=== PATIENT | male | born 1950 | race Caucasian/White ===

== ENCOUNTER 2017-01-01 18:42 | Emergency (ER) | payer MEDICARE, OTHER ==
[~2017-01-01] VITALS: Ht 175.3 cm; Wt 103.0 kg
[~2017-01-01 18:42] MED LIST: BP MED; CHOL. MED; [UNRECOGNIZED DRUG - OTHER]
[2017-01-01 18:47] VITALS: BP 158/79; PULSE 65; RESP 16; TEMP 98.5; O2SAT 97
--- NOTE | 2017-01-01 19:41 | PD ---
HPI Chief Complaint: GI Complaint Time Seen by Provider: 19:15 Travel History International Travel<30 days: No Contact w/Intl Traveler<30days: No Traveled to known affect area: No History of Present Illness HPI This 66-year-old male with multiple complaints. He says that he has had periods of constipation. He's had occasional nausea. At times he feels like he might pass out. He has had a right carotid endarterectomy done in October 28. He has a history of chronic sinus problems and prostate cancer in the past. He did have radiation external beam radiation to the prostate several years ago, he recently had a stress test. He had some mild left-sided chest pain that lasted about a minute earlier today. He has had a vascular bypass surgery in the abdomen. He was exposed to agent orange in [facility] Past Medical History Hx Anticoagulant Therapy: Yes (BABY ASA DAILY) Cardiovascular Problems: Yes (HTN, CHOL) High Cholesterol: Yes Diabetes: Yes Patient Takes Glucophage: Yes Diminished Hearing: No GERD: Yes Hypertension: Yes Kidney Stones: Yes Immunizations Current: Yes ?: Not Past Surgical History Cardiac Surgery: Yes (carotid artery surg 12/02) Other Surgery: Yes (BACK SURGERY IN 1994 AND BYPASS SURGERY "BOTH LEGS" IN 1996 ) Social History Alcohol Use: No Tobacco Use: No Substance Use: No Allergies-Medications (Allergen,Severity, Reaction): Coded Allergies: Herbicides (Verified Allergy, Intermediate, 01/01/17) Irbesartan (Verified Allergy, Intermediate, 01/01/17) Lisinopril (Verified Allergy, Intermediate, 01/01/17) Ampicillin (Verified Allergy, Unknown, 01/01/17) Reported Meds & Prescriptions Reported Meds & Active Scripts Active Reported Potassium Chloride ER (Potassium Chloride) 20 Meq Tab 20 Meq PO BID Omeprazole 20 Mg Cap Hydrochlorothiazide 25 Mg Tab 25 Mg PO DAILY Spironolactone 25 Mg Tab 12.5 Mg PO DAILY Hydralazine (Hydralazine HCl) 10 Mg Tab 10 Mg PO TID Take with a meal Glipizide 5 Mg Tab 5 Mg PO BIDAC Take 30 minutes before a meal Carvedilol 25 Mg Tab 25 Mg PO BID Atorvastatin (Atorvastatin Calcium) 40 Mg Tab 40 Mg PO HS Aspir-81 (Aspirin) 81 Mg Tabdr Amlodipine (Amlodipine Besylate) 10 Mg Tab 10 Mg PO DAILY Allopurinol 300 Mg Tab 300 Mg PO DAILY Alfuzosin ER 24 HR 10 Mg Tab 10 Mg PO DAILY Review of Systems General / Constitutional: No: Fever, Chills Eyes: No: Diploplia, Blurred Vision HENT: Positive: Lightheadedness, No: Headaches, Vertigo Cardiovascular: Positive: Chest Pain or Discomfort, No: Palpitations Respiratory: No: Cough, Shortness of Breath Gastrointestinal: Positive: Nausea, Constipation, No: Diarrhea Genitourinary: No: Nocturia Skin: No Rash, No Itching Neurologic: No: Weakness Psychiatric: No: Anxiety Physical Exam Narrative GENERAL: Well-developed male SKIN: Focused skin assessment warm/dry. HEAD: Atraumatic. Normocephalic. EYES: Pupils equal and round. No scleral icterus. No injection or drainage. ENT: No nasal bleeding or discharge. Mucous membranes pink and moist. NECK: Trachea midline. No JVD. CARDIOVASCULAR: Regular rate and rhythm. No murmur appreciated. RESPIRATORY: No accessory muscle use. Clear to auscultation. Breath sounds equal bilaterally. GASTROINTESTINAL: Abdomen soft, non-tender, nondistended. Hepatic and splenic margins not palpable. MUSCULOSKELETAL: No obvious deformities. No clubbing. No cyanosis. No edema. NEUROLOGICAL: Awake and alert. No obvious cranial nerve deficits. Motor grossly within normal limits. Normal speech. PSYCHIATRIC: Appropriate mood and affect; insight and judgment normal. Data Data Last Documented VS Vital Signs Date Time Temp Pulse Resp B/P Pulse Ox O2 Delivery O2 Flow Rate FiO2 01/01/17 18:47 98.5 65 16 158/79 97 Orders Electrocardiogram (01/01/17 19:29) Complete Blood Count With Diff (01/01/17 19:29) Comprehensive Metabolic Panel (01/01/17 19:29) Urinalysis - C+S If Indicated (01/01/17 19:29) Labs Laboratory Tests Test 01/01/17 20:00 White Blood Count 9.1 TH/MM3 Red Blood Count 5.11 MIL/MM3 Hemoglobin 15.8 GM/DL Hematocrit 47.7 % Mean Corpuscular Volume 93.3 FL Mean Corpuscular Hemoglobin 30.8 PG Mean Corpuscular Hemoglobin 33.0 % Concent Red Cell Distribution Width 13.7 % Platelet Count 167 TH/MM3 Mean Platelet Volume 9.5 FL Neutrophils (%) (Auto) 61.3 % Lymphocytes (%) (Auto) 22.7 % Monocytes (%) (Auto) 9.2 % Eosinophils (%) (Auto) 5.9 % Basophils (%) (Auto) 0.9 % Neutrophils # (Auto) 5.6 TH/MM3 Lymphocytes # (Auto) 2.1 TH/MM3 Monocytes # (Auto) 0.8 TH/MM3 Eosinophils # (Auto) 0.5 TH/MM3 Basophils # (Auto) 0.1 TH/MM3 CBC Comment DIFF FINAL Differential Comment Urine Color YELLOW Urine Turbidity CLEAR Urine pH 6.0 Urine Specific [place] 1.013 Urine Protein NEG mg/dL Urine Glucose (UA) NEG mg/dL Urine Ketones NEG mg/dL Urine Occult Blood NEG Urine Nitrite NEG Urine Bilirubin NEG Urine Leukocyte Esterase NEG Urine WBC 0-2 /hpf Urine Squamous Epithelial 0-5 /hpf Cells Urine Mucus RARE /lpf Microscopic Urinalysis Comment CULT NOT INDICATED Sodium Level 143 MEQ/L Potassium Level 3.9 MEQ/L Chloride Level 107 MEQ/L Carbon Dioxide Level 26.2 MEQ/L Anion Gap 10 MEQ/L Blood Urea Nitrogen 16 MG/DL Creatinine 1.00 MG/DL Estimat Glomerular Filtration 75 ML/MIN Rate Random Glucose 63 MG/DL Calcium Level 8.6 MG/DL Total Bilirubin 0.4 MG/DL Aspartate Amino Transf 20 U/L (AST/SGOT) Alanine Aminotransferase 30 U/L (ALT/SGPT) Alkaline Phosphatase 90 U/L Total Protein 7.3 GM/DL Albumin 3.7 GM/DL [facility] Medical Decision Making Medical Screen Exam Complete: Yes Emergency Medical Condition: Yes Medical Record Reviewed: Yes Differential Diagnosis Differential includes constipation, adverse medication reaction Narrative Course Lab work is unremarkable. I recommended the patient that he use milk of magnesia as needed for constipation. He is stable for discharge he is to follow -up at the [facility] Diagnosis Primary Impression: Constipation Qualified Code: K59.00 - Constipation, unspecified constipation type Additional Instructions: Take milk of magnesia as needed Disposition: 01 DISCHARGE HOME Condition: Stable Carlos Mcmahon MD Jan 01, 2017 19:40
[2017-01-01] MEDS ORDERED: POTA-163 PO (19:43)
[2017-01-01] MEDS ORDERED: ASPI81TA81 (19:43)
[2017-01-01] MEDS ORDERED: GLIP5TAB8 PO (19:43)
[2017-01-01] MEDS ORDERED: HYDR25TA5 PO (19:43)
[2017-01-01] MEDS ORDERED: SPIR25TA PO (19:43)
[2017-01-01] MEDS ORDERED: ALLO300T2 PO (19:43)
[2017-01-01] MEDS ORDERED: OMEP20CA2 (19:43)
[2017-01-01] MEDS ORDERED: ALFU10TA2 PO (19:43)
[2017-01-01] MEDS ORDERED: HYDR10TA23 PO (19:43)
[2017-01-01] MEDS ORDERED: AMLO10TA2 PO (19:43)
[2017-01-01] MEDS ORDERED: ATOR40TA16 PO (19:43)
[2017-01-01] MEDS ORDERED: CARV25TA PO (19:43)
[2017-01-01 20:10] LABS: AUTOMATED NEUTROPHIL # 5.6 TH/MM3 (1.8-7.7); BASOPHIL # 0.1 TH/MM3 (0-0.2); BASOPHIL % 0.9 % (0.0-2.0); BLOOD, URINE NEG (NEG); EOSINOPHIL # 0.5 TH/MM3 (0-0.4); EOSINOPHIL % 5.9 % (0.0-4.0); GLUCOSE,URINE NEG (NEG); HEMATOCRIT 47.7 % (39.0-51.0); KETONE, URINE NEG (NEG); LYMPH % 22.7 % (9.0-44.0); LYMPHOCYTE # 2.1 TH/MM3 (1.0-4.8); MEAN CELL VOLUME 93.3 FL (80.0-100.0); MEAN CORPUSCULAR HEMOGLOBIN 30.8 PG (27.0-34.0); MONO % 9.2 % (0.0-8.0); NEUT % 61.3 % (16.0-70.0); NITRITE,URINE NEG (NEG); PLATELET COUNT 167 TH/MM3 (150-450); RED BLOOD COUNT 5.11 MIL/MM3 (4.50-5.90); RED CELL DISTRIBUTION WIDTH 13.7 % (11.6-17.2); WHITE BLOOD COUNT 9.1 TH/MM3 (4.0-11.0)
[2017-01-01 20:12] LABS: HEMO FLAGS DIFF FINAL
[2017-01-01 20:24] LABS: CHLORIDE 107 MEQ/L (98-107); POTASSIUM 3.9 MEQ/L (3.5-5.1); SODIUM (NA) 143 MEQ/L (136-145)
[2017-01-01 20:27] LABS: ANION GAP 10 MEQ/L (5-15); BICARBONATE 26.2 MEQ/L (21.0-32.0); BLOOD UREA NITROGEN 16 MG/DL (7-18)
[2017-01-01 20:28] LABS: URINE COLOR YELLOW (YELLW/STRAW)
[2017-01-01 20:30] LABS: ALT (GPT) 30 U/L (12-78); AST (GOT) 20 U/L (15-37); GLOMERULAR FILTRATION RATE 75 ML/MIN (>89); MUCUS URINE RARE /lpf (OCC)
[2017-01-01 20:31] LABS: COMMENT (UR) CULT NOT INDICATED; CULTURE IF INDICATED CULT NOT INDICATED; SQUAMOUS EPITHELIAL CELL URINE 0-5 /hpf (0-5); WBC, URINE 0-2 /hpf (0-5)
[2017-01-01 20:32] LABS: TOTAL BILIRUBIN ADULT 0.4 MG/DL (0.2-1.0)
[2017-01-01 20:33] LABS: ALKALINE PHOSPHATASE 90 U/L (45-117)
[2017-01-01 21:23] VITALS: BP 147/72
--- NOTE | 2017-01-02 11:42 | EKG ---
Date Performed: 01/01/2017 Time Performed: 19:46:28 PTAGE: 66 years EKG: Sinus bradycardia with borderline 1st degree A-V block. Borderline ECG PREVIOUS TRACING : 08/20/2009 14.16 Compared to prior tracing no significant change DOCTOR: Dio Barragan Interpretating Date/Time 01/02/2017 11:41:54
== END 2017-01-01 21:26 | disposition home or self-care (01) ==
LOC: PHED 18:42
DX: K59.00 Constipation, unspecified (principal); I10 Essential (primary) hypertension; E78.00 Pure hypercholesterolemia, unspecified; E11.9 Type 2 diabetes mellitus without complications; K21.9 Gastro-esophageal reflux disease without esophagitis; Z87.442 Personal history of urinary calculi; Z85.46 Personal history of malignant neoplasm of prostate
CPT/HCPCS: 80053; 81001; 85025; 93005

== ENCOUNTER 2017-01-08 22:22 | Emergency (ER) | payer OTHER, MEDICARE ==
[~2017-01-08] VITALS: Ht 175.3 cm; Wt 102.7 kg
[~2017-01-08 22:22] MED LIST changes: +ALFU10TA2 PO; +ALLO300T2 PO; +AMLO10TA2 PO; +ASPI81TA81; +ATOR40TA16 PO; -BP MED; +CARV25TA PO; -CHOL. MED; +GLIP5TAB8 PO; +HYDR10TA23 PO; +HYDR25TA5 PO; +OMEP20CA2; +POTA-163 PO; +SPIR25TA PO; -[UNRECOGNIZED DRUG - OTHER]
[2017-01-08 22:35] VITALS: BP 174/75; PULSE 60; RESP 17; TEMP 98.7; O2SAT 95
--- NOTE | 2017-01-08 22:56 | RADHPO ---
EXAM DATE/TIME: 01/08/2017 22:49 [place] COMPARISON: No previous studies available for comparison. INDICATIONS : Chest pain. MEDICAL HISTORY : None. SURGICAL HISTORY : None. ENCOUNTER: Initial ACUITY: 1 day PAIN SCORE: 7/10 LOCATION: Bilateral chest FINDINGS: A single view of the chest demonstrates the lungs to be symmetrically aerated without evidence of mas s, infiltrate or effusion. The cardiomediastinal contours are unremarkable. Osseous structures are intact. CONCLUSION: The lungs are clear. Oc Gray MD on January 08, 2017 at 22:54 Board Certified Radiologist. This report was verified electronically.
[2017-01-08 23:20] VITALS: BP 175/69; PULSE 85; RESP 16; O2SAT 99
[2017-01-08 23:43] LABS: BASOPHIL # 0.3 TH/MM3 (0-0.2); EOSINOPHIL # 0.5 TH/MM3 (0-0.4); HEMATOCRIT 44.1 % (39.0-51.0); HEMO FLAGS DIFF FINAL; LYMPH % 23.7 % (9.0-44.0); MEAN CORPUSCULAR HEMOGLOBIN 31.7 PG (27.0-34.0); MEAN CORPUSCULAR HGB CONC 34.5 % (32.0-36.0); MONO % 9.5 % (0.0-8.0); NEUT % 57.8 % (16.0-70.0); PLATELET COUNT 121 TH/MM3 (150-450); RED CELL DISTRIBUTION WIDTH 13.6 % (11.6-17.2); WHITE BLOOD COUNT 8.6 TH/MM3 (4.0-11.0)
[2017-01-08 23:56] LABS: CHLORIDE 108 MEQ/L (98-107); POTASSIUM 3.7 MEQ/L (3.5-5.1); SODIUM (NA) 142 MEQ/L (136-145)
[2017-01-09] LABS: ANION GAP 9 MEQ/L (5-15); BICARBONATE 25.4 MEQ/L (21.0-32.0); BLOOD UREA NITROGEN 17 MG/DL (7-18)
--- NOTE | 2017-01-09 00:01 | PD ---
HPI Chief Complaint: Chest Pain Time Seen by Provider: 23:55 Travel History International Travel<30 days: No Contact w/Intl Traveler<30days: No Traveled to known affect area: No History of Present Illness HPI The patient is a 67-year-old male with no known history of heart disease but who does have vascular disease, who complains of a grabbing type chest pain lasting at its longest 2 minutes in the left axilla and left scapular area and left anterior chest. It started 8 days ago. He has had a normal stress test and echocardiogram in September of this year. He does have hypertension, non- insulin-dependent diabetes mellitus, elevated cholesterol and has peripheral vascular disease. He has had a carotid artery endarterectomy and a bilateral aortofemoral bypass graft. He does not smoke. He denies any nausea, shortness of breath or diaphoresis. He denies any radiation of pain. PFSH Past Medical History Hx Anticoagulant Therapy: Yes (BABY ASA DAILY) Cardiovascular Problems: Yes High Cholesterol: Yes Diabetes: Yes Patient Takes Glucophage: Yes Diminished Hearing: No GERD: Yes Hypertension: Yes Kidney Stones: Yes Immunizations Current: Yes Past Surgical History Cardiac Surgery: Yes (carotid artery surg 12/02) Other Surgery: Yes (BACK SURGERY IN 1994 AND BYPASS SURGERY "BOTH LEGS" IN 1996 ) Social History Alcohol Use: No Tobacco Use: No Substance Use: No Allergies-Medications (Allergen,Severity, Reaction): Coded Allergies: Herbicides (Verified Allergy, Intermediate, 01/08/17) Irbesartan (Verified Allergy, Intermediate, 01/08/17) Lisinopril (Verified Allergy, Intermediate, 01/08/17) Ampicillin (Verified Allergy, Unknown, 01/08/17) Reported Meds & Prescriptions Reported Meds & Active Scripts Active Reported Potassium Chloride ER (Potassium Chloride) 20 Meq Tab 20 Meq PO BID Omeprazole 20 Mg Cap Hydrochlorothiazide 25 Mg Tab 25 Mg PO DAILY Spironolactone 25 Mg Tab 12.5 Mg PO DAILY Hydralazine (Hydralazine HCl) 10 Mg Tab 10 Mg PO TID Take with a meal Glipizide 5 Mg Tab 5 Mg PO BIDAC Take 30 minutes before a meal Carvedilol 25 Mg Tab 25 Mg PO BID Atorvastatin (Atorvastatin Calcium) 40 Mg Tab 40 Mg PO HS Aspir-81 (Aspirin) 81 Mg Tabdr Amlodipine (Amlodipine Besylate) 10 Mg Tab 10 Mg PO DAILY Allopurinol 300 Mg Tab 300 Mg PO DAILY Alfuzosin ER 24 HR 10 Mg Tab 10 Mg PO DAILY Review of Systems Except as stated in HPI: all other systems reviewed are Neg Physical Exam Narrative GENERAL: The patient is alert, anxious, oriented 3 in no apparent distress. His vital signs show heart rate of 60 and blood pressure 174/75 but are otherwise normal. SKIN: Focused skin assessment warm/dry. HEAD: Atraumatic. Normocephalic. EYES: Pupils equal and round. No scleral icterus. No injection or drainage. ENT: No nasal bleeding or discharge. Mucous membranes pink and moist. NECK: Trachea midline. No JVD. CARDIOVASCULAR: Regular rate and rhythm. No murmur appreciated. RESPIRATORY: No accessory muscle use. Clear to auscultation. Breath sounds equal bilaterally. GASTROINTESTINAL: Abdomen soft, non-tender, nondistended. Hepatic and splenic margins not palpable. MUSCULOSKELETAL: No obvious deformities. No clubbing. No cyanosis. No edema. NEUROLOGICAL: Awake and alert. No obvious cranial nerve deficits. Motor grossly within normal limits. Normal speech. PSYCHIATRIC: Appropriate mood and affect; insight and judgment normal. Data Data Last Documented VS Vital Signs Date Time Temp Pulse Resp B/P Pulse Ox O2 Delivery O2 Flow Rate FiO2 01/08/17 23:20 88 99 Room Air 01/08/17 23:20 16 175/69 01/08/17 22:35 98.7 Orders Electrocardiogram (01/08/17 22:37) Complete Blood Count With Diff (01/08/17 22:37) Basic Metabolic Panel (Bmp) (01/08/17 22:37) Ckmb (Isoenzyme) Profile (01/08/17 22:37) Troponin I (01/08/17 22:37) Chest, Single Ap (01/08/17 22:37) Iv Access Insert/Monitor (01/08/17 22:37) Ecg Monitoring (01/08/17 22:37) Oxygen Administration (01/08/17 22:37) Oximetry (01/08/17 22:37) CKMB (01/08/17 23:30) CKMB% (01/08/17 23:30) Labs Laboratory Tests Test 01/08/17 23:30 White Blood Count 8.6 TH/MM3 Red Blood Count 4.80 MIL/MM3 Hemoglobin 15.2 GM/DL Hematocrit 44.1 % Mean Corpuscular Volume 92.0 FL Mean Corpuscular Hemoglobin 31.7 PG Mean Corpuscular Hemoglobin 34.5 % Concent Red Cell Distribution Width 13.6 % Platelet Count 121 TH/MM3 Mean Platelet Volume 9.9 FL Neutrophils (%) (Auto) 57.8 % Lymphocytes (%) (Auto) 23.7 % Monocytes (%) (Auto) 9.5 % Eosinophils (%) (Auto) 6.0 % Basophils (%) (Auto) 3.0 % Neutrophils # (Auto) 5.0 TH/MM3 Lymphocytes # (Auto) 2.0 TH/MM3 Monocytes # (Auto) 0.8 TH/MM3 Eosinophils # (Auto) 0.5 TH/MM3 Basophils # (Auto) 0.3 TH/MM3 CBC Comment DIFF FINAL Differential Comment Sodium Level 142 MEQ/L Potassium Level 3.7 MEQ/L Chloride Level 108 MEQ/L Carbon Dioxide Level 25.4 MEQ/L Anion Gap 9 MEQ/L Blood Urea Nitrogen 17 MG/DL Creatinine 0.99 MG/DL Estimat Glomerular Filtration 75 ML/MIN Rate Random Glucose 74 MG/DL Calcium Level 8.0 MG/DL Total Creatine Kinase 108 U/L Creatine Kinase MB 0.9 NG/ML Troponin I 0.05 NG/ML MDM Medical Decision Making Medical Screen Exam Complete: Yes Emergency Medical Condition: Yes Medical Record Reviewed: Yes Interpretation(s) The chest x-ray shows no acute cardiopulmonary disease. The CBC is normal. The EKG shows sinus bradycardia with rate of [address] elevation or depression. The basic metabolic profile shows a GFR of 75 and calcium 8.0 but is otherwise unremarkable. The cardiac enzymes are normal. Differential Diagnosis Atypical chest pain, acute coronary syndrome, electrolyte disorder, renal insufficiency, chest pain etiology undetermined Narrative Course The patient appears to have atypical chest pain. His cardiac enzymes are normal and his pain lasts 2 minutes or less. He has had a recent stress test which was normal according to the patient. He does have risk factors. At this time I cannot identify a reason to bring him in the hospital. Diagnosis Primary Impression: Atypical chest pain Additional Instructions: You're welcome to return to emergency department if your chest pain is worse. At this time I do not find any cardiac cause for your chest pain. Follow-up with your primary care physician next week. Med/Other Pt SpecificInfo: No Change to Meds Disposition: 01 DISCHARGE HOME Condition: Randy Mtz MD Jan 09, 2017 00:01
[2017-01-09 00:03] LABS: GLOMERULAR FILTRATION RATE 75 ML/MIN (>89)
[2017-01-09 00:05] VITALS: BP 141/72; PULSE 78; RESP 16; O2SAT 100
[2017-01-09 00:06] LABS: CREATINE KINASE 108 U/L (39-308)
[2017-01-09 00:18] LABS: CKMB 0.9 NG/ML (0.5-3.6)
[2017-01-09 01:19] VITALS: BP 154/71
--- NOTE | 2017-01-09 14:22 | EKG ---
Date Performed: 01/08/2017 Time Performed: 22:41:50 PTAGE: 67 years EKG: Sinus bradycardia with borderline 1st degree A-V block Compared to prior tracing no signifi cant change Borderline ECG PREVIOUS TRACING : 01/01/2017 19.46 DOCTOR: Robert Solis Interpretating Date/Time 01/09/2017 14:21:30
== END 2017-01-09 01:23 | disposition home or self-care (01) ==
LOC: PHED 22:22
DX: R07.89 Other chest pain (principal); R00.1 Bradycardia, unspecified; R94.31 Abnormal electrocardiogram [ECG] [EKG]; I10 Essential (primary) hypertension; E11.9 Type 2 diabetes mellitus without complications; E78.00 Pure hypercholesterolemia, unspecified; I73.9 Peripheral vascular disease, unspecified; Z79.82 Long term (current) use of aspirin; Z79.84 Long term (current) use of oral hypoglycemic drugs; Z86.79 Personal history of other diseases of the circulatory system; Z87.19 Personal history of other diseases of the digestive system; Z87.442 Personal history of urinary calculi
CPT/HCPCS: 71010; 80048; 82550; 82552; 84484; 85025; 93005

== ENCOUNTER 2017-08-20 15:11 | Emergency (ER) | payer OTHER, MEDICARE ==
[~2017-08-20] VITALS: Ht 175.3 cm; Wt 103.0 kg
[2017-08-20 15:19] VITALS: BP 166/72; PULSE 60; RESP 16; TEMP 98; O2SAT 96
--- NOTE | 2017-08-20 15:39 | PD ---
HPI Chief Complaint: Skin Problem Time Seen by Provider: 15:23 Travel History International Travel<30 days: No Contact w/Intl Traveler<30days: No Traveled to known affect area: No History of Present Illness HPI 67-year-old male presents first partner for evaluation of a surgical site on the proximal right medial thigh. Patient had a stent placed 5 days ago at the [facility] in [place]. He states he noticed a pink drainage today. He is concerned that the wound appeared infected. Denies any fever or chills. States the area is numb and has been since the surgery. He has no other symptoms to report. PFSH Past Medical History Hx Anticoagulant Therapy: Yes (BABY ASA DAILY) Cardiovascular Problems: Yes High Cholesterol: Yes Diabetes: Yes Diminished Hearing: No GERD: Yes Hypertension: Yes Kidney Stones: Yes Immunizations Current: Yes Past Surgical History Cardiac Surgery: Yes (carotid artery surg 12/02) Other Surgery: Yes (BACK SURGERY IN 1994 AND BYPASS SURGERY "BOTH LEGS" IN 1996 ) Social History Alcohol Use: No Tobacco Use: No Substance Use: No Allergies-Medications (Allergen,Severity, Reaction): Coded Allergies: herbicide (Unverified Allergy, Intermediate, 08/20/17) irbesartan (Unverified Allergy, Intermediate, 08/20/17) lisinopril (Unverified Allergy, Intermediate, 08/20/17) ampicillin (Unverified Allergy, Unknown, 08/20/17) Reported Meds & Prescriptions Reported Meds & Active Scripts Active Bacitracin Topical 500 Unit/Gm Oint 1 Applic TOPICAL BID Reported Rosuvastatin (Rosuvastatin Calcium) 20 Mg Tab 20 Mg PO HS Hydralazine (Hydralazine HCl) 100 Mg Tab 25 Mg PO QID Take with meals Plavix (Clopidogrel Bisulfate) 75 Mg Tab 75 Mg PO DAILY Potassium Chloride ER (Potassium Chloride) 20 Meq Tab 20 Meq PO BID Omeprazole 20 Mg Cap Hydrochlorothiazide 25 Mg Tab 25 Mg PO DAILY Spironolactone 25 Mg Tab 12.5 Mg PO DAILY Glipizide 5 Mg Tab 5 Mg PO BIDAC Take 30 minutes before a meal Carvedilol 25 Mg Tab 25 Mg PO BID Atorvastatin (Atorvastatin Calcium) 40 Mg Tab 40 Mg PO HS Aspir-81 (Aspirin) 81 Mg Tabdr Amlodipine (Amlodipine Besylate) 10 Mg Tab 10 Mg PO DAILY Allopurinol 300 Mg Tab 300 Mg PO DAILY Alfuzosin ER 24 HR 10 Mg Tab 10 Mg PO DAILY Review of Systems Except as stated in HPI: all other systems reviewed are Neg Physical Exam Narrative GENERAL: Well-nourished, well-developed ill patient in no acute distress SKIN: Focused skin assessment warm/dry. 6 cm incision site on the proximal aspect of the right medial thigh it is minimally dehisced with scabbing. There is a cancer serosanguineous drainage on the dressing. There is ecchymosis covering the anterior medial right thigh HEAD: Normocephalic. EYES: No scleral icterus. No injection or drainage. NECK: Supple, trachea midline. No JVD or lymphadenopathy. CARDIOVASCULAR: Regular rate and rhythm without murmurs, gallops, or rubs. RESPIRATORY: Breath sounds equal bilaterally. No accessory muscle use. GASTROINTESTINAL: Abdomen soft, non-tender, nondistended. Ecchymosis on the right lower quadrant lateral wall. MUSCULOSKELETAL: No cyanosis, or edema. BACK: Nontender without obvious deformity. No CVA tenderness. Data Data Last Documented VS Vital Signs Date Time Temp Pulse Resp B/P (MAP) Pulse Ox O2 Delivery O2 Flow Rate FiO2 08/20/17 15:19 98.0 60 16 166/72 (103) 96 Orders Orders Ed Discharge Order (08/20/17 15:40) MDM Medical Decision Making Medical Screen Exam Complete: Yes Emergency Medical Condition: Yes Medical Record Reviewed: Yes Differential Diagnosis Hematoma versus ecchymosis versus bleeding versus effective than versus wound dehiscence Narrative Course 67-year-old male presents emergency department for evaluation surgical site. Wound appears not infected. There is a small amount of erythematous drainage. I have asked my attending physician Dr. Mota to also evaluate the area. It does appear to be normal healing. Patient is counseled on care. Encouraged to follow-up with his surgeon and to return immediately with any acute worsening of symptoms. Diagnosis Primary Impression: Wound drainage Additional Impression: Wound dehiscence, external operation Qualified Codes: T81.31XA - Disruption of external operation (surgical) wound , not elsewhere classified, initial encounter Referrals: Primary Care Physician Patient Instructions: Acute Wound Care (DC), General Instructions Additional Instructions: Follow all postop instructions Keep the area clean and dry You may shower Follow-up with a primary care provider Follow-up with her surgeon Return immediately to the emergency department with any acute worsening of symptoms Med/Other Pt SpecificInfo: Prescription(s) given Scripts Bacitracin Topical (Bacitracin Topical) 500 Unit/Gm Oint 1 APPLIC TOPICAL BID for Infection, #30 GM 0 Refills Prov: Jazzmine Claire 08/20/17 Disposition: 01 DISCHARGE HOME Condition: Stable Jazzmine Claire Aug 20, 2017 15:39
[2017-08-20] MEDS ORDERED: ROSU1TAB8 PO (15:40)
[2017-08-20] MEDS ORDERED: PLAV75TA29 PO (15:40)
[2017-08-20] MEDS ORDERED: HYDR-3801 PO (15:40)
[2017-08-20] MEDS ORDERED: BACI500O9 TOPICAL (15:43)
[2017-08-21] MEDS ORDERED: TERA2CAP3 PO (21:39)
== END 2017-08-20 16:05 | disposition home or self-care (01) ==
LOC: PHED 15:11 → PHEFT 16:05
DX: T81.31XA Disruption of external operation (surgical) wound, not elsewhere classified, initial encounter (principal); E78.00 Pure hypercholesterolemia, unspecified; E11.9 Type 2 diabetes mellitus without complications; I10 Essential (primary) hypertension; Z79.01 Long term (current) use of anticoagulants
CPT/HCPCS: 99282

== ENCOUNTER 2017-08-21 19:39 | Emergency (ER) | payer OTHER, MEDICARE ==
[~2017-08-21] VITALS: Ht 175.3 cm; Wt 103.3 kg
[~2017-08-21 19:39] MED LIST changes: +BACI500O9 TOPICAL; +HYDR-3801 PO; -HYDR10TA23 PO; +PLAV75TA29 PO; +ROSU1TAB8 PO
[2017-08-21 19:58] VITALS: BP 168/73; PULSE 65; RESP 16; TEMP 98.2; O2SAT 96
[2017-08-21 20:40] VITALS: BP 175/74; PULSE 61; RESP 18; O2SAT 97
[2017-08-21 21:10] LABS: AUTOMATED NEUTROPHIL # 4.8 TH/MM3 (1.8-7.7); BASOPHIL # 0.1 TH/MM3 (0-0.2); BASOPHIL % 0.7 % (0.0-2.0); EOSINOPHIL # 0.6 TH/MM3 (0-0.4); EOSINOPHIL % 7.5 % (0.0-4.0); HEMATOCRIT 42.3 % (39.0-51.0); HEMO FLAGS DIFF FINAL; LYMPH % 19.6 % (9.0-44.0); LYMPHOCYTE # 1.5 TH/MM3 (1.0-4.8); MEAN CELL VOLUME 93.1 FL (80.0-100.0); MEAN CORPUSCULAR HEMOGLOBIN 31.2 PG (27.0-34.0); MEAN CORPUSCULAR HGB CONC 33.5 % (32.0-36.0); NEUT % 65.2 % (16.0-70.0); PLATELET COUNT 154 TH/MM3 (150-450); RED BLOOD COUNT 4.54 MIL/MM3 (4.50-5.90); RED CELL DISTRIBUTION WIDTH 12.4 % (11.6-17.2); WHITE BLOOD COUNT 7.5 TH/MM3 (4.0-11.0)
[2017-08-21 21:22] LABS: POTASSIUM 3.7 MEQ/L (3.5-5.1)
[2017-08-21 21:24] LABS: BICARBONATE 26.1 MEQ/L (21.0-32.0)
--- NOTE | 2017-08-21 21:26 | PD ---
HPI Chief Complaint: Lump, Cyst, Hernia Time Seen by Provider: 20:31 Travel History International Travel<30 days: No Contact w/Intl Traveler<30days: No Traveled to known affect area: No History of Present Illness HPI 67-year-old male presents to the emergency department for evaluation of pain and swelling and bruising of the right lower extremity status post catheter procedure on and the [facility] in [place], Dr George. Patient states he was discharged from the hospital in [place] on Monday. Patient reports since being discharged from the hospital he's had oozing from the postsurgical site. Patient's had no fever or chills. Patient does take blood thinning medication Plavix. Patient was seen in the emergency department yesterday for complaint of bruising from the wound site and decided that time showed some bruising and some firmness at the incision site but no purulent drainage or active bleeding was noted. Patient states since that time he has been applying Bactroban ointment and he thinks that the bruising has increased but more concerning to him as it there has been increased swelling and bruising of the right lower extremity extending down to the knee causing difficulty for him to bend the knee without pain. Patient has not reported any chest pain pleuritic chest pain or shortness of breath. Patient states that he has had previous aortofemoral bypass procedure. Patient has history of arthritis, diabetes, hypertension, dyslipidemia, CAD with stents, PAD, and carotid stenosis with surgical intervention 11/2016. Patient does not smoke cigarettes. PFSH Past Medical History Narrative Medical CAD hypertension PAD diabetes dyslipidemia cardiac catheterization with stents aortobifemoral carotid stenosis with surgical intervention; no tobacco use: Nursing notes reviewed Hx Anticoagulant Therapy: Yes Cardiac Catheterization: Yes Cardiovascular Problems: Yes (STENTS) High Cholesterol: Yes Diabetes: Yes Patient Takes Glucophage: No Diminished Hearing: No GERD: Yes Hypertension: Yes Kidney Stones: Yes Immunizations Current: Yes Past Surgical History Cardiac Surgery: Yes (carotid artery surg 12/02) Other Surgery: Yes (BACK SURGERY IN 1994 AND BYPASS SURGERY "BOTH LEGS" IN 1996 ) Social History Alcohol Use: No Tobacco Use: No Substance Use: No Allergies-Medications (Allergen,Severity, Reaction): Coded Allergies: herbicide (Unverified Allergy, Intermediate, 08/21/17) irbesartan (Unverified Allergy, Intermediate, 08/21/17) lisinopril (Unverified Allergy, Intermediate, 08/21/17) ampicillin (Unverified Allergy, Unknown, 08/21/17) Reported Meds & Prescriptions Reported Meds & Active Scripts Active Bacitracin Topical 500 Unit/Gm Oint 1 Applic TOPICAL BID Reported Terazosin (Terazosin HCl) 2 Mg Cap 2 Mg PO TID Rosuvastatin (Rosuvastatin Calcium) 20 Mg Tab 20 Mg PO HS Hydralazine (Hydralazine HCl) 100 Mg Tab 25 Mg PO QID Take with meals Plavix (Clopidogrel Bisulfate) 75 Mg Tab 75 Mg PO DAILY Potassium Chloride ER (Potassium Chloride) 20 Meq Tab 20 Meq PO BID Omeprazole 20 Mg Cap Glipizide 5 Mg Tab 5 Mg PO BIDAC Take 30 minutes before a meal Carvedilol 25 Mg Tab 25 Mg PO BID Aspir-81 (Aspirin) 81 Mg Tabdr Amlodipine (Amlodipine Besylate) 10 Mg Tab 10 Mg PO DAILY Allopurinol 300 Mg Tab 300 Mg PO DAILY Review of Systems Except as stated in HPI: all other systems reviewed are Neg General / Constitutional: No: Fever HENT: No: Sore Throat, Congestion Cardiovascular: No: Chest Pain or Discomfort Respiratory: No: Shortness of Breath, Pleuritic Pain Gastrointestinal: No: Abdominal Pain Genitourinary: No: Flank Pain Musculoskeletal: Positive: Edema (RLE), Pain (RLE) Skin: Positive Other (post op incision right groin) Neurologic: No: Weakness, Dizziness, Syncope Psychiatric: No: Anxiety Hematologic/Lymphatic: Positive: Easy Bruising Physical Exam Narrative GENERAL: Well-developed well-nourished female in no acute distress no respiratory distress SKIN: Warm and dry. HEAD: Normocephalic. EYES: No scleral icterus. No injection or drainage. NECK: Supple, trachea midline. No JVD or lymphadenopathy. CARDIOVASCULAR: Regular rate and rhythm without murmurs, gallops, or rubs. RESPIRATORY: Breath sounds equal bilaterally. No accessory muscle use. GASTROINTESTINAL: Abdomen soft, non-tender, nondistended. Bilateral lateral lower abdominal wall/ flank ecchymoses, " they gave me injections". MUSCULOSKELETAL: No cyanosis, or edema. Attention right lower extremity proximal medial thigh post operative incision site approximately 6 cm without wound dehiscence with soft tissue swelling ecchymosis tenderness firmness of the thigh and at the postsurgical site without erythema increased warmth or purulent drainage distally extremity remains neurovascular tendon intact with 2 + dorsalis pedis pulse and posterior tibialis pulse fluid is pink and warm with brisk capillary refill BACK: Nontender without obvious deformity. No CVA tenderness. Data Data Last Documented VS Vital Signs Date Time Temp Pulse Resp B/P (MAP) Pulse Ox O2 Delivery O2 Flow Rate FiO2 08/22/17 00:12 57 18 155/64 (94) 97 08/21/17 22:30 Room Air 08/21/17 19:58 98.2 Orders Orders ^ Saline Lock (08/21/17 20:31) Us Leg Hematoma/Pseudoaneurysm (08/21/17 ) Us Leg Venous Doppler (08/21/17 ) Act Partial Throm Time (Ptt) (08/21/17 20:31) Prothrombin Time / Inr (Pt) (08/21/17 20:31) Complete Blood Count With Diff (08/21/17 20:31) Basic Metabolic Panel (Bmp) (08/21/17 20:31) Wound Care (08/21/17 23:10) Ed Discharge Order (08/21/17 23:10) Labs Laboratory Tests Test 08/21/17 21:00 White Blood Count 7.5 TH/MM3 Red Blood Count 4.54 MIL/MM3 Hemoglobin 14.1 GM/DL Hematocrit 42.3 % Mean Corpuscular Volume 93.1 FL Mean Corpuscular Hemoglobin 31.2 PG Mean Corpuscular Hemoglobin Concent 33.5 % Red Cell Distribution Width 12.4 % Platelet Count 154 TH/MM3 Mean Platelet Volume 9.7 FL Neutrophils (%) (Auto) 65.2 % Lymphocytes (%) (Auto) 19.6 % Monocytes (%) (Auto) 7.0 % Eosinophils (%) (Auto) 7.5 % Basophils (%) (Auto) 0.7 % Neutrophils # (Auto) 4.8 TH/MM3 Lymphocytes # (Auto) 1.5 TH/MM3 Monocytes # (Auto) 0.5 TH/MM3 Eosinophils # (Auto) 0.6 TH/MM3 Basophils # (Auto) 0.1 TH/MM3 CBC Comment DIFF FINAL Differential Comment Prothrombin Time 10.5 SEC Prothromb Time International Ratio 1.0 RATIO Activated Partial Thromboplast Time 28.0 SEC Blood Urea Nitrogen 15 MG/DL Creatinine 1.00 MG/DL Random Glucose 84 MG/DL Calcium Level 8.8 MG/DL Sodium Level 138 MEQ/L Potassium Level 3.7 MEQ/L Chloride Level 105 MEQ/L Carbon Dioxide Level 26.1 MEQ/L Anion Gap 7 MEQ/L Estimat Glomerular Filtration Rate 75 ML/MIN MDM Medical Decision Making Medical Screen Exam Complete: Yes Emergency Medical Condition: Yes Medical Record Reviewed: Yes Interpretation(s) US RLE dvt: FINDINGS: There is normal compressibility of the deep venous system from the inguinal region to the proximal calf. No echogenic clot is seen in the lumen of the common femoral, femoral, popliteal, and posterior tibial veins. There is a normal response of the venous system to proximal and distal augmentation and respiration. CONCLUSION: No evidence of deep venous thrombosis within the right lower extremity. Cruz Araya MD on August 21, 2017 at 22:11 Board Certified Radiologist. This report was verified electronically. Differential Diagnosis Postoperative swelling, wound dehiscence, DVT, hematoma, pseudoaneurysm, limb ischemia Narrative Course Patient resting comfortably voicing no concerns or complaints Ultrasound reveals no DVT Ultrasound for pseudoaneurysm negative for pseudoaneurysm positive for hematoma Patient's case discussed with on-call vascular surgeon will see patient in his office in the a.m. Patient was spouse at bedside informed of imaging results in stable for outpatient management resources provided for possible vascular surgeon and close follow-up Physician Communication Physician Communication Discussed patient and imaging studies with on-call vascular surgeon Dr. Sheets - -recommends one day follow-up in his office and [facility] at [phone], office phone # Diagnosis Primary Impression: Hematoma of right thigh Referrals: Cruz Sheets MD 1 day [facility] Office [phone] Patient Instructions: General Instructions Additional Instructions: Follow up with vascular surgeon Dr Sheets [phone], [facility] return to the ED as needed continue current medications as prescribed Elevate right leg Med/Other Pt SpecificInfo: No Change to Meds Disposition: 01 DISCHARGE HOME Condition: Stable Indu Varma MD Aug 21, 2017 21:26
[2017-08-21 21:27] LABS: PROTHROMBIN TIME - PATIENT 10.5 SEC (9.8-11.6)
[2017-08-21] MEDS ORDERED: TERA2CAP3 PO (21:39)
--- NOTE | 2017-08-21 22:14 | RADRPT ---
EXAM DATE/TIME: 08/21/2017 21:26 [facility] COMPARISON: No previous studies available for comparison. INDICATIONS : Right leg pain and swelling. MEDICAL HISTORY : Hypercholesterolemia. Hypertension. Gastroesophageal reflux disease. Anticoagulant therapy. Kidney stones. Diabetes. Coronary artery disease. SURGICAL HISTORY : Coronary artery stent. Carotid endarterectomy. Back surgery. Femoral bypass. ENCOUNTER: Initial ACUITY: 1 day PAIN SCORE: 7/10 LOCATION: Right leg. TECHNIQUE: Venous ultrasound of the leg was performed from the inguinal ligament to the proximal calf. Real-chandler e, color Doppler and spectral tracing, compression and augmentation techniques were used. FINDINGS: There is normal compressibility of the deep venous system from the inguinal region to the proximal ca lf. No echogenic clot is seen in the lumen of the common femoral, femoral, popliteal, and posterior tibial veins. There is a normal response of the venous system to proximal and distal augmentation an d respiration. CONCLUSION: No evidence of deep venous thrombosis within the right lower extremity. Cruz Araya MD on August 21, 2017 at 22:11 Board Certified Radiologist. This report was verified electronically.
--- NOTE | 2017-08-21 22:24 | RADRPT ---
EXAM DATE/TIME: 08/21/2017 21:42 [facility] COMPARISON: No previous studies available for comparison. INDICATIONS : Right leg pain and swelling. MEDICAL HISTORY : Hypercholesterolemia. Hypertension. Gastroesophageal reflux disease. Anticoagulant therapy. Kidney st ones. Diabetes. Coronary artery disease. SURGICAL HISTORY : Coronary artery stent. Carotid endarterectomy. Back surgery. Femoral bypass. ENCOUNTER: Initial ACUITY: 1 day PAIN SCORE: 6/10 LOCATION: Right leg. AREA EVALUATED: Right groin. FINDINGS: Sonographic evaluation of the right groin demonstrates a complex collection measuring 6.4 x 5.4 x 3.1 cm which may represent seroma/hematoma. No pseudoaneurysm is noted. CONCLUSION: Complex right groin collection measuring 6.4 x 5.4 x 3.1 cm consistent with probable seroma/hematoma. No pseudoaneurysm identified. Cruz Araya MD on August 21, 2017 at 22:20 Board Certified Radiologist. This report was verified electronically.
[2017-08-21 22:30] VITALS: BP 161/64; PULSE 60; RESP 18
[2017-08-22 00:12] VITALS: BP 155/64
== END 2017-08-22 00:16 | disposition home or self-care (01) ==
LOC: PHED 19:39
DX: S70.11XA Contusion of right thigh, initial encounter (principal); I25.10 Atherosclerotic heart disease of native coronary artery without angina pectoris; I10 Essential (primary) hypertension; E11.9 Type 2 diabetes mellitus without complications; E78.00 Pure hypercholesterolemia, unspecified; Z79.01 Long term (current) use of anticoagulants; X58.XXXA Exposure to other specified factors, initial encounter
CPT/HCPCS: 80048; 85025; 85610; 85730; 93926; 93971